=== PATIENT | female | born 1980 | race Caucasian/White ===

== ENCOUNTER → 2016-09-12 | Outpatient (CLI) | payer BC ==
--- NOTE | 2016-09-12 08:14 | US ---
EXAMINATION TYPE: US pelvic complete DATE OF EXAM: 09/12/2016 7:42 AM COMPARISON: No previous CLINICAL HISTORY: R10.9 Abdominal pain,. RUQ and back tenderness, nausea, diarrhea, 1, para 1 , hx of TECHNIQUE: Transabdominal (TA) Date of LMP: 09/02/2016 EXAM MEASUREMENTS: Uterus: 7.9 x 3.5 x 4.2 cm Endometrial Stripe: 0.4 cm Right Ovary: 2.7 x 2.7 x 1.5 cm Left Ovary: 2.7 x 2.5 x 1.6 cm TECHNOLOGIST IMPRESSION: 1. Uterus: Anteverted 2. Endometrium: wnl for patient's menstrual cycle 3. Right Ovary: 0.8cm small cystic area 4. Left Ovary: 0.8cm small cystic area 5. Bilateral Adnexa: wnl 6. Posterior cul-de-sac: free fluid seen IMPRESSION: NORMAL PELVIC ULTRASOUND.
--- NOTE | 2016-09-12 08:21 | US ---
EXAMINATION TYPE: US abdomen complete DATE OF EXAM: 09/12/2016 8:02 AM COMPARISON: No previous CLINICAL HISTORY: R10.9 Abdominal pain,. RUQ and back tenderness, nausea, diarrhea EXAM MEASUREMENTS: Liver Length: 15.0 cm Gallbladder Wall: 0.2 cm CBD: 0.2 cm Spleen: 11.0 cm Right Kidney: 9.6 x 3.9 x 5.2 cm Left Kidney: 10.5 x 6.2 x 4.4 cm TECHNOLOGIST IMPRESSION: Pancreas: wnl Liver: wnl Gallbladder: wnl Evidence for sonographic Vuong's sign: yes CBD: wnl Spleen: visualized portions wnl, limited by rib shadowing Right Kidney: wnl Left Kidney: visualized portions wnl, limited by rib shadowing Upper IVC: wnl Abd Aorta: wnl IMPRESSION: 1. Unremarkable abdomen ultrasound
== END | disposition home or self-care (01) ==
LOC: RADUSWWP 07:27
PROVIDERS: ATTEND Family Medicine
DX: R10.9 Unspecified abdominal pain (principal)
CPT/HCPCS: 76700; 76856

== ENCOUNTER → 2016-09-24 | Outpatient (CLI) | payer BC ==
--- NOTE | 2016-09-24 19:11 | NM ---
EXAMINATION TYPE: NM hepatobiliary w EF DATE OF EXAM: 09/24/2016 5:25 PM COMPARISON: NONE HISTORY: TECHNIQUE: After the intravenous administration of 5.3 mCi Tc 99m Mebrofenin hepatobiliary scintigrap hy is performed. Immediate images post injection. FINDINGS: There is satisfactory initial accumulation of tracer by the liver. The gallbladder is visualized wit hin 5 minutes. The small bowel activity is noted within 22 minutes. At one hour 8 ounces of oral en sure plus is given to mimic CCK and gallbladder ejection fraction is calculated at 86 %, in the mariza l range. Therefore there is no scintigraphic evidence of cystic or common bile duct obstruction to s uggest acute cholecystitis or gallbladder dyskinesia. IMPRESSION: Normal hepatobiliary scan. No evidence of a focal liver defect. No sign of cystic duct or common bile duct obstruction. Normal gallbladder ejection fraction.
== END | disposition home or self-care (01) ==
LOC: RADNMMAIN 14:49
PROVIDERS: ATTEND Family Medicine
DX: R10.9 Unspecified abdominal pain (principal)
CPT/HCPCS: 78226; A9537

== ENCOUNTER 2018-01-13 09:50 | Inpatient (IN) | payer BC ==
[2018-01-09 13:51] VITALS: BMI 30.9
[2018-01-13] MEDS ORDERED: LACTATED RINGERS 1,000 ML IV ONE (10:03)
[2018-01-13] MEDS ORDERED: CITRIC ACID-SODIUM CITRATE 15 ML CUP PO ONE (10:03)
[2018-01-13] MEDS ORDERED: ceFAZolin IN SWFI 2 GM/20 ML SYRINGE IVP ONE (10:28)
[2018-01-13 11:01] LABS: Basophils % (A) 0 %; Eosinophils # (A) 0.1 k/uL (0-0.7); Eosinophils % (A) 1 %; HCT 37.3 % (34.0-46.0); Lymphocytes # (A) 0.9 k/uL (1.0-4.8); Lymphocytes % (A) 12 %; MCHC 34.7 g/dL (31.0-37.0); MCV 86.5 fL (80.0-100.0); Mean Platelet Volume 9.2; Monocytes # (A) 0.4 k/uL (0-1.0); Monocytes % (A) 6 %; Neutrophils # (A) 6.3 k/uL (1.3-7.7); Neutrophils % (A) 80 %; Platelet Count 132 k/uL (150-450); RBC 4.31 m/uL (3.80-5.40); RDW 13.3 % (11.5-15.5); WBC 7.9 k/uL (3.8-10.6)
[2018-01-13] MEDS ORDERED: LACTATED RINGERS 1,000 ML BAG IV ONE (11:10)
[2018-01-13] MEDS ORDERED: NALBUPHINE 10 MG/ML VIAL (10ML MDV) ONE (11:10)
[2018-01-13] MEDS ORDERED: OXYTOCIN 10 UNIT/ML 1 ML VIAL ONE (11:10)
[2018-01-13] MEDS ORDERED: ePHEDrine 50 MG/ML 1 ML AMP ONE (11:10)
[2018-01-13] MEDS ORDERED: MORPHINE SULFATE (PF) 0.3 MG/0.3 ML SYR ONE (11:10)
[2018-01-13] MEDS ORDERED: ONDANSETRON 4 MG/2 ML VIAL ONE (11:10)
[2018-01-13] MEDS ORDERED: KETOROLAC 30 MG/ML 1 ML VIAL ONE (11:10)
[2018-01-13] MEDS ORDERED: ZOLPIDEM 5 MG TAB PO PRN (12:15)
[2018-01-13] MEDS ORDERED: diphenhydrAMINE 50 MG CAP PO PRN (12:15)
[2018-01-13] MEDS ORDERED: NALOXONE 0.4 MG/ML 1 ML VIAL IV PRN ×2 (12:15→20:59)
[2018-01-13] MEDS ORDERED: HYDROcodone/APAP 5-325MG 1 EACH TAB PO PRN (12:15)
[2018-01-13] MEDS ORDERED: diphenhydrAMINE 50 MG/ML 1 ML VIAL IVP PRN ×3 (12:15→20:59)
[2018-01-13] MEDS ORDERED: diphenhydrAMINE 25 MG CAP PO PRN (12:15)
[2018-01-13] MEDS ORDERED: ONDANSETRON 4 MG/2 ML VIAL IVP PRN (12:15)
[2018-01-13] MEDS ORDERED: ACETAMINOPHEN TAB 325 MG TAB PO PRN (12:15)
[2018-01-13] MEDS ORDERED: SIMETHICONE 80 MG CHEWABLE PO PRN (12:15)
[2018-01-13] MEDS ORDERED: OXYTOCIN 20 UNITS/1000 ML NS 1,000 ML IV SCH (12:15)
[2018-01-13] MEDS ORDERED: METOCLOPRAMIDE 5 MG/ML 2 ML VIAL IVP PRN (12:15)
--- NOTE | 2018-01-13 12:23 | P.HPOB ---
History of Present Illness H&P Date: 01/13/18 Chief Complaint: 39-3/7 weeks, previous section requesting repeat, undesired fertil The patient is a 37-year-old 2 para 1001 admitted at 39-3/7 weeks as established by last menstrual period and confirmed by 19 week ultrasound. She is admitted for repeat low transverse section having previously undergone section. She also has requested intraoperative bilateral tubal occlusion. Her has been uncomplicated though her first did have some complications the with significant wound infection following her section. As result, she has requested that her scar be revised as well. She does fall into the category of advanced maternal age and had negative trisomy screening at the onset of . On labor and delivery , all maternal and signs are reassuring. Group B strep is positive the from a positive urine culture. Obstetrical history: 2 para 1001 with 1 term section for arrest of dilation and descent which was also complicated by a postoperative wound infection. Current statistics are listed in history of present illness. EDC of 01/17/2018 was established by last menstrual period and confirmed by 19 week ultrasound. Laboratory workup demonstrates a blood type of O+ with a negative antibody screen. Rubella status is immune. All other laboratory workup was within normal limits aside from her urine culture growing group B streptococcus. This was treated and cured. Trisomy testing early in the was negative. One hour Glucola was negative and group B strep status is positive as noted above. Gynecologic history: Unremarkable with no history of any infections to include STDs. Review of Systems Review of systems is confined to history of present illness. Past Medical History Past Medical History: No Reported History History of Any Multi-Drug Resistant Organisms: None Reported Past Surgical History: Section Past Anesthesia/Blood Transfusion Reactions: No Reported Reaction Past Psychological History: No Psychological Hx Reported Smoking Status: Never smoker Past Alcohol Use History: None Reported Past Drug Use History: None Reported - Past Family History Mother Family Medical History: No Reported History Medications and Allergies Home Medications Medication Instructions Recorded Confirmed Type Pnv No.95/Ferrous Fum/Folic AC 1 each PO DAILY 01/09/18 01/13/18 History [ Multivitamin Tablet] Allergies Allergy/AdvReac Type Severity Reaction Status Date / Time clindamycin Allergy Severe muscles Verified 01/13/18 10:07 seized up methylprednisolone Allergy Severe Rash/Hives Verified 01/13/18 10:07 [From Medrol] Penicillins Allergy Severe Rash/Hives Verified 01/13/18 10:07 Quinolones Allergy Severe Rash/Hives Verified 01/13/18 10:07 Sulfa (Sulfonamide Allergy Severe Rash/Hives Verified 01/13/18 10:07 Antibiotics) betalactams Allergy Severe Rash/Hives Uncoded 01/13/18 10:07 Exam - Vital Signs Vital signs: Vital Signs Temp Pulse Resp BP 01/13/18 09:57 98.3 F 130 H 18 121/74 Intake and Output 01/12/18 01/13/18 01/13/18 22:59 06:59 14:59 Other: Weight 69.4 kg In general, this is a well-developed, well-nourished white female in no acute distress though she is quite nervous. Her heart has a regular rhythm and rate those occasionally tachycardic secondary to her anxiety. Her lungs are clear to auscultation bilaterally in all schaefer. Her abdomen is gravid, nondistended , has normal active bowel sounds, is soft, nontender, and without any palpable masses aside from uterine fundus. Her extremities are without any cyanosis, clubbing, or edema and are nontender to palpation bilaterally. Digital cervical examination is deferred. Results Result Diagrams: 01/13/18 10:35 Abnormal Lab Results - Last 24 Hours (Table) 01/13/18 Range/Units 10:35 Plt Count 132 L (150-450) k/uL Lymphocytes # 0.9 L (1.0-4.8) k/uL Assessment and Plan (1) Family planning Current Visit: Yes Status: Acute Code(s): Z30.09 - ENCOUNTER FOR OTH GENERAL CNSL AND ADVICE ON CONTRACEPTION SNOMED Code(s): 093800399 (2) Term Current Visit: Yes Status: Acute Code(s): Z34.80 - ENCOUNTER FOR SUPRVSN OF NORMAL , UNSP TRIMESTER SNOMED Code(s): 79864724 (3) Previous section Current Visit: Yes Status: Acute Code(s): Z98.891 - HISTORY OF UTERINE SCAR FROM PREVIOUS SURGERY SNOMED Code(s): 054836526 Plan: The patient is admitted for repeat low transverse section with intraoperative bilateral tubal occlusion using Filshie clips. We additionally have discussed excision and revision of the pre-existing scar. The risks and complications of the procedures have been thoroughly discussed and she has understood and agreed to proceed.
--- NOTE | 2018-01-13 12:31 | P.OP ---
Date of Procedure: 01/13/18 Preoperative Diagnosis: #1. 39-3/7 weeks, previous section #2. Undesired fertility Postoperative Diagnosis: Same Procedure(s) Performed: #1. Repeat low transverse section #2. Intraoperative bilateral tubal occlusion with Filshie clips #3. Excision and revision of scar Anesthesia: spinal Surgeon: Girma Em Electric Wheelchair Repairer #1: Kaleigh Jacome Estimated Blood Loss (ml): 500 IV fluids (ml): 1,000 Urine output (ml): 150 Pathology: none sent Condition: stable Disposition: floor Operative Findings: The patient was taken the operating room where she was delivered of a viable 7 lbs. 5 oz. baby boy with Apgars of 9 at 1 minute and 9 at 5 minutes. The uterus , tubes, and ovaries were entirely normal to inspection. The layer uterine segment was very thin. There was a moderate amount of scarring at the level of the fascia but minimal scarring within the abdomen. The entire pre-existing Pfannenstiel scar was completely excised at the onset of the procedure and discarded. The placenta was delivered manually, intact, and grossly normal although it did appear to have a possible accessory lobe. There was otherwise a normal three-vessel cord. Description of Procedure: The patient was prepped and draped in usual fashion after spinal anesthesia was administered by the anesthesiologist. The Pfannenstiel incision was ellipsed and excised to the level of the fascia as the patient has very very little subcutaneous tissue. The abdomen was then entered without significant further difficulty. The bladder peritoneum was noted to be scarred somewhat superiorly and was therefore elevated, incised and reflected distally. A 2 cm incision was made in the transverse plane of the lower uterine segment to enter the uterus at which time clear fluid was noted. The incision was extended both with bandage scissors and bluntly. The head was then delivered through the incision with some difficulty secondary to previous scarring. As result, the uterine incision was opened vertically in the central approximate 1 cm vertically. This allowed room for the infant's head the past. The nose and mouth were thoroughly suctioned on the abdomen. The remainder of the infant was delivered onto the field where the cord was doubly clamped, cut, and the infant passed resuscitative measures with weight and Apgars as noted above. A segment of cord was doubly clamped, cut, and set aside should cord gases become necessary. The placenta was delivered manually, intact, and grossly normal as noted above though there was a possible small succenturiate lobe. The uterus was exteriorized and the interior cavity of the uterus swept of any remaining blood, fluid, or clot. The margins of the incision were grasped with Roque clamps and the incision was closed in a single running locking stitch of 0 chromic catgut from margin to margin incorporating the small T- shaped portion in the closure. Hemostasis appeared to be excellent. The posterior cul-de-sac was then suctioned using a guard. Attention was turned to the right fallopian tube where a Filshie clip was placed across the entire thickness of the fallopian tube and firmly closed over it. A similar operation was carried out on the opposite side without difficulty. Each clip was placed approximately 2-3 cm from the cornu of the uterus bilaterally. The uterus was replaced within the abdominal cavity and the gutters were swept of any remaining blood, fluid, or clot. The incision was reexamined and any small points of bleeding made hemostatic with the Bovie. The parietal peritoneum was loosely reapproximated in the layer of muscles examined and made hemostatic with the Bovie. The fascia was closed with a single running stitch of 0 Vicryl proceeding from margin to margin. The subcutaneous tissues were irrigated, made hemostatic with the Bovie, and reapproximated with a stitch of 30 plain catgut. The skin was reapproximated with a running subcuticular stitch of 4-0 Vicryl followed by half-inch Steri-Strips placed with Mastisol. Estimated blood loss for the entire case was approximately 500 mL. There were no complications. All sponge, instrument, and needle counts were correct. The patient tolerated the procedure well and proceeded to the recovery room in stable condition. Both mother and are resting comfortably in recovery.
[2018-01-13] MEDS: KETOROLAC 30 MG/ML 1 ML VIAL IVP PRN (17:57)
[2018-01-13] MEDS: SENNOSIDES-DOCUSATE SODIUM 1 EACH TAB PO SCH (20:11)
[2018-01-13] MEDS ORDERED: PROMETHAZINE INJ 6.25 MG in SODIUM CHLORIDE 0.9% 50 ML IVPB PRN (20:59)
[2018-01-13] MEDS ORDERED: MORPHINE SULFATE 2 MG/ML SYRINGE IVP PRN (20:59)
[2018-01-13] MEDS ORDERED: NALBUPHINE 10 MG/ML VIAL (10ML MDV) IV PRN (20:59)
[2018-01-13] MEDS: LACTATED RINGERS 1,000 ML IV SCH ×4 (22:26→23:19)
[2018-01-14] MEDS: KETOROLAC 30 MG/ML 1 ML VIAL IVP PRN ×2 (02:41→09:14)
[2018-01-14] MEDS: LACTATED RINGERS 1,000 ML IV SCH (05:25)
[2018-01-14 06:57] LABS: Basophils % (A) 0 %; Eosinophils # (A) 0.1 k/uL (0-0.7); Eosinophils % (A) 1 %; HCT 32.8 % (34.0-46.0); HGB 11.2 gm/dL (11.4-16.0); Lymphocytes # (A) 0.6 k/uL (1.0-4.8); Lymphocytes % (A) 6 %; MCH 30.3 pg (25.0-35.0); MCHC 34.2 g/dL (31.0-37.0); MCV 88.6 fL (80.0-100.0); Monocytes # (A) 0.5 k/uL (0-1.0); Monocytes % (A) 6 %; Neutrophils % (A) 86 %; Platelet Count 107 k/uL (150-450); RDW 13.8 % (11.5-15.5); WBC 9.3 k/uL (3.8-10.6)
--- NOTE | 2018-01-14 08:45 | P.PNOBGPC ---
Subjective - Subjective Patient reports: Reports appetite normal, Reports voiding normally, Reports pain well controlled, Reports ambulating normally : doing well Objective - Vital Signs Latest vital signs: Vital Signs Temp Pulse Resp BP Pulse Ox 01/14/18 06:00 16 01/14/18 04:00 98.8 F 102 H 16 100/60 98 01/14/18 02:00 16 01/13/18 23:50 98.8 F 106 H 16 123/74 98 01/13/18 22:00 16 01/13/18 20:30 98.2 F 104 H 16 118/70 98 01/13/18 15:45 98.2 F 103 H 16 124/74 97 01/13/18 14:13 97.5 F L 105 H 18 127/63 01/13/18 13:43 97.5 F L 103 H 16 126/65 99 01/13/18 13:13 114 H 18 129/59 99 01/13/18 12:58 110 H 18 127/61 99 01/13/18 12:43 111 H 18 125/65 99 01/13/18 12:28 107 H 16 118/60 100 01/13/18 12:13 97.0 F L 126 H 16 113/61 100 01/13/18 09:57 98.3 F 130 H 18 121/74 Intake and Output 01/13/18 01/14/18 01/14/18 22:59 06:59 14:59 Intake Total 600 Output Total 525 1000 150 Balance -525 -400 -150 Intake: Other 600 Output: Urine 525 1000 150 Straight 1000 Uretheral (Khan) 450 Other: Voiding Method Indwelling Catheter - Exam Extremities: Present: normal Abdomen: Present: normal appearance, soft. Absent: distention, tenderness Incision: Present: normal, dry, intact Uterus: Present: normal, firm (The uterine fundus as tonic and appropriately tender at the umbilicus) - Labs Labs: Abnormal Lab Results - Last 24 Hours (Table) 01/13/18 01/14/18 Range/Units 10:35 06:44 RBC 3.70 L (3.80-5.40) m/uL Hgb 11.2 L (11.4-16.0) gm/dL Hct 32.8 L (34.0-46.0) % Plt Count 132 L 107 L (150-450) k/uL Neutrophils # 8.0 H (1.3-7.7) k/uL Lymphocytes # 0.9 L 0.6 L (1.0-4.8) k/uL Assessment and Plan (1) Family planning Current Visit: Yes Status: Acute Code(s): Z30.09 - ENCOUNTER FOR OTH GENERAL CNSL AND ADVICE ON CONTRACEPTION SNOMED Code(s): 394477165 (2) Term Current Visit: Yes Status: Acute Code(s): Z34.80 - ENCOUNTER FOR SUPRVSN OF NORMAL , UNSP TRIMESTER SNOMED Code(s): 83714432 (3) Previous section Current Visit: Yes Status: Acute Code(s): Z98.891 - HISTORY OF UTERINE SCAR FROM PREVIOUS SURGERY SNOMED Code(s): 058927331 (4) S/P section Current Visit: Yes Status: Acute Code(s): Z98.891 - HISTORY OF UTERINE SCAR FROM PREVIOUS SURGERY SNOMED Code(s): 174242736 Plan: Continue routine postoperative care. I have strongly encouraged the patient amulet in the hallways at least 4 times daily. I would anticipate discharge home tomorrow pending no complications.
[2018-01-14] MEDS: SENNOSIDES-DOCUSATE SODIUM 1 EACH TAB PO SCH ×2 (09:14→22:04)
--- NOTE | 2018-01-14 10:10 | P.PN ---
Progress Note - Text Anesthesia POD 1. Patient is status post section under spinal anesthesia with intra-thecal preservative free morphine and 100 g. Mild pruritus, reasonable post-op analgesia but requiring morphine and Toradol supplementation, and no headache or other complication.
[2018-01-14] MEDS: IBUPROFEN 600 MG TAB PO PRN ×2 (16:09→22:11)
[2018-01-14] MEDS: HYDROcodone/APAP 7.5-325MG 1 EACH TAB PO PRN (19:40)
[2018-01-15] MEDS: HYDROcodone/APAP 7.5-325MG 1 EACH TAB PO PRN ×2 (01:32→08:10)
[2018-01-15] MEDS: IBUPROFEN 600 MG TAB PO PRN ×2 (05:19→11:24)
[2018-01-15] MEDS: SENNOSIDES-DOCUSATE SODIUM 1 EACH TAB PO SCH (08:10)
--- NOTE | 2018-01-15 08:50 | P.DS ---
Providers Date of admission: 01/13/18 09:50 Expected date of discharge: 01/15/18 Attending physician: Girma Em Primary care physician: Troy Alvarado - Discharge Diagnosis(es) (1) Family planning Current Visit: Yes Status: Acute (2) Term Current Visit: Yes Status: Acute (3) Previous section Current Visit: Yes Status: Acute (4) S/P section Current Visit: Yes Status: Acute Hospital Course: The patient is a 37-year-old 2 para 1001 admitted at 39-3/7 weeks by good dating parameters. She is admitted for repeat low transverse section with tubal ligation intraoperatively. Her was uncomplicated though she falls into the category of advanced maternal age. She did have trisomy testing done at the beginning of the which was negative. She was taken to the operating room where she underwent repeat low transverse section with intraoperative bilateral tubal occlusion using Filshie clips without complication. I also performed excision of the scar and revision of the wound from previous complications. Her postoperative course was unremarkable with vital signs remaining stable and her temperature was afebrile throughout. She was deemed stable for discharge by postoperative day #2 was discharged home to follow-up in the office in 2 weeks for an incision check and 6 weeks routinely. Discharge instructions included calling for any significantly increased bleeding or foul-smelling lochia, significantly increased fever abdominal pain, perineal complaints, breast complaints, incisional complaints, or anything else that concerned her. She was additionally instructed to have nothing in the vagina for at least 6 weeks time to include intercourse and to avoid any heavy lifting over the same period of time. She was lastly instructed to do no driving until off of all pain medications or 2 weeks' time, whichever came first. She understood all of her instructions and agrees to follow up as noted above. Discharge medications included [id number] analgesic pain medications as well as a prescription for [place] 5/325 mg, 1-2 by mouth every 6 hours when necessary pain, #20 dispensed with no refills. Maternal blood type is O+ and rubella status is immune. Discharge hemoglobin and hematocrit were 11.2 and 32.8 respectively. Procedures: #1. Repeat low transverse section #2. Intraoperative bilateral tubal occlusion with Filshie clips #3. Scar excision and revision Patient Condition at Discharge: Good Plan - Discharge Summary Discharge Rx Participant: Yes New Discharge Prescriptions: No Action Pnv No.95/Ferrous Fum/Folic AC [ Multivitamin Tablet] 1 each PO DAILY Discharge Medication List Pnv No.95/Ferrous Fum/Folic AC [ Multivitamin Tablet] 1 each PO DAILY [History] Follow up Appointment(s)/Referral(s): Girma Em MD [STAFF PHYSICIAN] - 2 Weeks Discharge Disposition: HOME SELF-CARE
[2018-01-15 09:19] VITALS: BP 120/74; PULSE 107; RESP 16; TEMP 97.9
== END 2018-01-15 12:14 | disposition home or self-care (01) | DRG 766 ==
LOC: 4FBP 09:50
PROVIDERS: ADMIT Obstetrics & Gynecology; ATTEND Obstetrics & Gynecology
PROC: 0UL70CZ Occlusion of Bilateral Fallopian Tubes with Extraluminal Device, Open Approach (ICD-10-PCS; 2018-01-13)
PROC: 10D00Z1 Extraction of Products of Conception, Low, Open Approach (ICD-10-PCS; principal; 2018-01-13 12:00)
DX: O34.211 Maternal care for low transverse scar from previous cesarean delivery (principal); Z37.0 Single live birth; O99.824 Streptococcus B carrier state complicating childbirth; Z30.2 Encounter for sterilization; O99.72 Diseases of the skin and subcutaneous tissue complicating childbirth; L29.9 Pruritus, unspecified; Z3A.39 39 weeks gestation of pregnancy
CPT/HCPCS: 85025; 86850; 86900; 86901

== ENCOUNTER → 2018-04-30 | Outpatient (CLI) | payer BC ==
[2018-04-30 16:24] LABS: Basophils % (A) 1 %; Eosinophils # (A) 0.2 k/uL (0-0.7); Eosinophils % (A) 4 %; HCT 41.2 % (34.0-46.0); HGB 13.3 gm/dL (11.4-16.0); Lymphocytes # (A) 1.1 k/uL (1.0-4.8); Lymphocytes % (A) 26 %; MCH 28.8 pg (25.0-35.0); MCHC 32.3 g/dL (31.0-37.0); MCV 89.1 fL (80.0-100.0); Mean Platelet Volume 8.1; Monocytes # (A) 0.2 k/uL (0-1.0); Monocytes % (A) 5 %; Neutrophils # (A) 2.5 k/uL (1.3-7.7); Neutrophils % (A) 61 %; Platelet Count 196 k/uL (150-450); RBC 4.63 m/uL (3.80-5.40); RDW 13.1 % (11.5-15.5)
== END | disposition home or self-care (01) ==
LOC: LABPAT 15:22
PROVIDERS: ATTEND Obstetrics & Gynecology
DX: Z01.812 Encounter for preprocedural laboratory examination (principal); N92.1 Excessive and frequent menstruation with irregular cycle
CPT/HCPCS: 85025

== ENCOUNTER 2018-05-12 06:55 | Day surgery (SDC) | payer BC ==
[2018-05-05 15:38] VITALS: BMI 24.2
[~2018-05-12 06:55] MED LIST: LACTATED RINGERS 1,000 ML IV SCH; ONDANSETRON 4 MG/2 ML VIAL IVP ONE; fentaNYL (PF) 50 MCG/ML 2 ML AMP IV PRN
[2018-05-12] MEDS ORDERED: LIDOCAINE 1% 20 ML VIAL (10MG/ML) FOR IV START INTRADERMA ONE (07:52)
[2018-05-12] MEDS ORDERED: DEXAMETHASONE SOD PHOS (MDV) 100 MG/10 ML VIAL IV ONE (07:53)
[2018-05-12] MEDS ORDERED: diphenhydrAMINE 50 MG/ML 1 ML VIAL ONE (08:38)
[2018-05-12] MEDS ORDERED: fentaNYL (PF) 50 MCG/ML 2 ML AMP ONE (08:38)
[2018-05-12] MEDS ORDERED: PROPOFOL 10 MG/ML 20 ML VIAL IV ONE (08:38)
[2018-05-12] MEDS ORDERED: MIDAZOLAM 2 MG/2 ML VIAL ONE (08:38)
[2018-05-12] MEDS ORDERED: LIDOCAINE 1% INJ 10MG/ML (20 ML MDV) ONE (08:38)
[2018-05-12] MEDS ORDERED: KETOROLAC 30 MG/ML 1 ML VIAL ONE (08:38)
[2018-05-12] MEDS ORDERED: diphenhydrAMINE 50 MG/ML 1 ML VIAL IVP PRN (08:41)
[2018-05-12] MEDS ORDERED: IBUPROFEN 600 MG TAB PO PRN (08:41)
[2018-05-12] MEDS ORDERED: ONDANSETRON 4 MG/2 ML VIAL IVP PRN (08:41)
[2018-05-12] MEDS ORDERED: SIMETHICONE 80 MG CHEWABLE PO PRN (08:41)
[2018-05-12] MEDS ORDERED: KETOROLAC 30 MG/ML 1 ML VIAL IVP PRN (08:41)
[2018-05-12] MEDS ORDERED: METOCLOPRAMIDE 5 MG/ML 2 ML VIAL IVP PRN (08:41)
[2018-05-12] MEDS ORDERED: LACTATED RINGERS 1,000 ML IV SCH (08:45)
--- NOTE | 2018-05-12 09:14 | P.OP ---
Date of Procedure: 05/12/18 Preoperative Diagnosis: #1. Menometrorrhagia Postoperative Diagnosis: Same Procedure(s) Performed: #1. Diagnostic hysteroscopy #2. NovaSure endometrial ablation Anesthesia: ROSE Surgeon: Girma Em Estimated Blood Loss (ml): 5 IV fluids (ml): 300 Urine output (ml): 275 Pathology: none sent Condition: stable Disposition: PACU Operative Findings: Preoperative pelvic examination demonstrated a 5-6 week midplane mobile normal shaped uterus with normal adnexa bilaterally. Intraoperatively, the uterus sounded to 9.5 cm while the cervix was approximately 4 cm. Using the hysteroscope, the bilateral tubal ostia were seen. There is no apparent pathology within the endometrial cavity. The settings for the NovaSure tool where a length of 5.5 cm, a width of 4.8 cm, for a total power of 145 W. The cavity check was passed without difficulty. After run time of 95 seconds, the base unit read "procedure complete." The postprocedural result appeared to be excellent. The patient is a candidate for da Maria Ines approach should hysterectomy become necessary given her 2 previous sections and only average descensus. Description of Procedure: The patient was prepped and draped in usual fashion after general endotracheal anesthesia was administered by the anesthesiologist. A weighted speculum was placed and the bladder drained of approximately 275 mL of clear kailash urine. The anterior lip of the cervix was grasped with single-tooth tenaculum and the uterus was sounded to 9.5 cm with a cervical length of 4.0 cm as noted above. Serial dilation was carried out to admit the diagnostic hysteroscope which was placed to the fundus and diagnostic hysteroscopy carried out using saline as a distention media. The bilateral tubal ostia were seen and there was no apparent pathology throughout the cavity. The scope was then set aside and the NovaSure tool placed to the fundus and opened and seated properly. The settings for the tool were as noted above, a length of 5.5 cm, a width of 4.8 cm , a total power 145 W. The cavity check was attempted and passed without difficulty. The tool was enabled and the run was started. After a run time of 95 seconds, the tool disengaged and the base unit read "procedure complete." The 2 was closed removed and discarded and the diagnostic scope placed within the endometrial cavity. The result appeared to be excellent. All instrumentation was then removed. There was bleeding from both sites of the tenaculum which was made hemostatic using pressure. Estimated blood loss for the entire case was less than 5 mL. There are no complications. All sponge, instrument, and needle counts were correct. The patient tolerated the procedure well and proceeded to the recovery room in stable condition.
[2018-05-12 09:34] VITALS: TEMP 98.7
[2018-05-12 09:36] VITALS: RESP 16
[2018-05-12] MEDS: HYDROmorphone 1 MG/ML 1 ML SYRINGE IVP PRN ×2 (09:40→09:48)
[2018-05-12 10:55] VITALS: BP 119/74; PULSE 89
[2018-05-13] MEDS ORDERED: ACETAMINOPHEN TAB 325 MG TAB PO PRN (08:43)
== END 2018-05-12 11:02 | disposition home or self-care (01) ==
LOC: OR 06:55
PROVIDERS: ATTEND Obstetrics & Gynecology
DX: N92.1 Excessive and frequent menstruation with irregular cycle (principal); M41.9 Scoliosis, unspecified; Z88.1 Allergy status to other antibiotic agents; Z88.0 Allergy status to penicillin; Z88.2 Allergy status to sulfonamides; Z88.8 Allergy status to other drugs, medicaments and biological substances
CPT/HCPCS: 81025; 58563; J2250; J1200; J2405; J2001; J3010; J1885; J1170; J1100; J2704

== ENCOUNTER → 2019-07-06 | Outpatient (CLI) | payer BC ==
[2019-07-06 17:45] LABS: African American GFR (CKD) >90 (>60 ml/min/1.73 sqM); Anion Gap 7 mmol/L; Blood Urea Nitrogen 11 mg/dL (7-17); Carbon Dioxide 28 mmol/L (22-30); Chloride 103 mmol/L (98-107); Glucose 122 mg/dL (74-99); Non-African American GFR(CKD) >90 (>60 ml/min/1.73 sqM); Potassium 3.7 mmol/L (3.5-5.1); Sodium 138 mmol/L (137-145)
[2019-07-06 17:47] LABS: Basophils % (A) 1 %; Eosinophils # (A) 0.1 k/uL (0-0.7); Eosinophils % (A) 3 %; HGB 13.4 gm/dL (11.4-16.0); Lymphocytes # (A) 1.3 k/uL (1.0-4.8); Lymphocytes % (A) 32 %; MCH 30.3 pg (25.0-35.0); MCHC 34.4 g/dL (31.0-37.0); Mean Platelet Volume 8.5; Monocytes # (A) 0.2 k/uL (0-1.0); Monocytes % (A) 6 %; Neutrophils # (A) 2.4 k/uL (1.3-7.7); Neutrophils % (A) 57 %; Platelet Count 218 k/uL (150-450); RBC 4.43 m/uL (3.80-5.40); WBC 4.2 k/uL (3.8-10.6)
== END | disposition home or self-care (01) ==
LOC: LABPAT 16:47
PROVIDERS: ATTEND Obstetrics & Gynecology
DX: N92.1 Excessive and frequent menstruation with irregular cycle (principal)
CPT/HCPCS: 36415; 80051; 82565; 82947; 84520; 85025; 87086

== ENCOUNTER 2019-07-13 05:48 | Observation (INO) | payer BC ==
[2019-07-09 10:31] VITALS: BMI 22.2
--- NOTE | 2019-07-12 18:41 | HP ---
HISTORY AND PHYSICAL REASON FOR ADMISSION: Surgery scheduled on July 13, 2019. HISTORY OF PRESENT ILLNESS: The patient is a 38-year-old 2, para 2002, who initially presented to the office with a long-standing history of heavy and irregular bleeding. She has undergone tubal ligation with her last section, of which she has had 2. For that, bleeding, she then underwent NovaSure endometrial ablation approximately a year ago, but continues to have irregular and occasionally very heavy bleeding, which is interruptive of her lifestyle. She has not tolerated hormonal interventions in the past and is requesting definitive treatment with hysterectomy. Given her history of sections as well as lack of descensus, she is only a candidate for either open or Da Maria Ines procedure and we will proceed with a Da Maria Ines hysterectomy. PAST MEDICAL HISTORY: Significant for dysmenorrhea, menorrhagia, scoliosis, and occasional anemia. SURGICAL HISTORY: She has had sections on 2 different occasions in 2015 and in 2018. She then had a diagnostic hysteroscopy with NovaSure endometrial ablation in 2018. Prior to that, she had an exploratory laparoscopy in 2011. Tubal ligation was performed during her 2nd section. There were no anesthetic concerns. GYNECOLOGIC HISTORY: Is unremarkable with no history of any infections to include STDs. OBSTETRICAL HISTORY: 2, para 2-0-0-2 with 2 term sections. The 2nd section included tubal ligation, which is her method of contraception. SOCIAL HISTORY: The patient is and does work outside the home. She is a nonsmoker and denies any significant alcohol or any other social concerns. CURRENT MEDICATIONS: None. ALLERGIES: SHE REPORTS AN ALLERGY TO BETA LACTAMS WELL CLINDAMYCIN AND APPARENTLY DEVELOPED A RASH FROM THE BETA LACTAMS OR PENICILLINS. ADDITIONALLY, SHE HAS HAD SOME ISSUES WITH QUINOLONES IN THE PAST LEADING TO HIVES WELL SULFA DRUGS CAUSING HIVES. PHYSICAL EXAMINATION: Vital signs are stable. The patient is afebrile. In general, this is a well- developed, well-nourished white female in no acute distress. Her heart has regular rhythm and rate without murmur. Her lungs are clear to auscultation bilaterally in all schaefer. Her abdomen is nondistended, has normoactive bowel sounds, soft, nontender, and without any palpable masses, hepatosplenomegaly, or hernias. Her extremities are without any cyanosis, clubbing, or edema and are nontender to palpation bilaterally. Pelvic examination demonstrates normal external genitalia and BUS with normal vaginal mucosa and cervix. There is no cervical motion tenderness. Uterus is 5 weeks in size, mid plane, mobile, nontender, normal in shape. The adnexa are normal and nontender without mass bilaterally. ASSESSMENT AND PLAN: Menometrorrhagia: We discussed options for treatment and the patient has chosen definitive therapy with Da Maria Ines hysterectomy with bilateral salpingectomy and diagnostic cystoscopy. The risks and complications of the procedure have been thoroughly discussed including the risks for bleeding, bleeding requiring transfusion, infection, and injury to local structures to specifically include the bowel, bladder, and ureters. Special attention was paid to issues with the bladder given her history of 2 previous sections. We also discussed the risk for injuries that are unique to Da Maria Ines surgery to include thermal injury as well as vaginal cuff dehiscence. She has understood all this and has agreed to proceed. We are scheduled for the procedures as outlined above on the morning of 07/13/2019. MMODL / IJN: [id number] /
[~2019-07-13 05:48] MED LIST changes: +DEXAMETHASONE SOD PHOSPHATE 10 MG/ML 1 ML VIAL IV ONE; -LACTATED RINGERS 1,000 ML IV SCH; +MIDAZOLAM 2 MG/2 ML VIAL IV PRN; +SCOPOLAMINE 1.5MG/72HR PATCH TRANSDERM ONE; -fentaNYL (PF) 50 MCG/ML 2 ML AMP IV PRN
[2019-07-13] MEDS: LIDOCAINE 1% 20 ML VIAL (10MG/ML) FOR IV START INTRADERMA PRN ×2 (06:30→06:33)
[2019-07-13] MEDS: LACTATED RINGERS 1,000 ML IV SCH ×4 (06:33→19:18)
[2019-07-13] MEDS ORDERED: fentaNYL (PF) 50 MCG/ML 2 ML AMP IV ONE (07:07)
[2019-07-13] MEDS ORDERED: DEXAMETHASONE SOD PHOSPHATE 4 MG/ML 1 ML VIAL ONE (07:29)
[2019-07-13] MEDS ORDERED: LIDOCAINE 1% INJ 10MG/ML (20 ML MDV) ONE (07:29)
[2019-07-13] MEDS ORDERED: KETOROLAC 30 MG/ML 1 ML VIAL ONE (07:29)
[2019-07-13] MEDS ORDERED: MIDAZOLAM 2 MG/2 ML VIAL ONE (07:29)
[2019-07-13] MEDS ORDERED: ROCURONIUM BROMIDE 10 MG/ML 10 ML VIAL IV ONE (07:29)
[2019-07-13] MEDS ORDERED: GLYCOPYRROLATE 0.2 MG/ML 2 ML VIAL ONE (07:29)
[2019-07-13] MEDS ORDERED: diphenhydrAMINE 50 MG/ML 1 ML VIAL ONE (07:29)
[2019-07-13] MEDS ORDERED: PROPOFOL 10 MG/ML 20 ML VIAL IV ONE (07:29)
[2019-07-13] MEDS ORDERED: NEOSTIGMINE 1 MG/ML 10 ML VIAL ONE (07:29)
[2019-07-13] MEDS ORDERED: fentaNYL (PF) 50 MCG/ML 2 ML AMP ONE (07:29)
[2019-07-13] MEDS ORDERED: ROPIVACAINE 5 MG/ML 30 ML VIAL ONE (07:29)
[2019-07-13] MEDS ORDERED: ZOLPIDEM 5 MG TAB PO PRN (07:46)
[2019-07-13] MEDS ORDERED: diphenhydrAMINE 50 MG/ML 1 ML VIAL IVP PRN (07:46)
[2019-07-13] MEDS ORDERED: KETOROLAC 30 MG/ML 1 ML VIAL IVP PRN ×2 (07:46→15:21)
[2019-07-13] MEDS ORDERED: METOCLOPRAMIDE 5 MG/ML 2 ML VIAL IVP PRN (07:46)
[2019-07-13] MEDS ORDERED: Acetaminophen-Codeine 300-30mg TAB PO PRN (07:46)
[2019-07-13] MEDS ORDERED: BUPIVACAINE (PF) 0.5% 30 ML VIAL SQ ONE ×2 (08:13→09:21)
--- NOTE | 2019-07-13 08:23 | P.ANPRN ---
Procedure Note - Anesthesia - Nerve Block Performed Bilateral Transversus Abdominis Single Time Out Performed: Yes Date of Procedure: 07/13/19 Procedure Start Time: : Procedure Stop Time: :12 Location of Patient: PreOp Indication: Acute Post-Operative Pain, Analgesia, Requested by Surgeon Sedation Type: Sedate with meaningful contact maintained Preparation: Sterile Prep Position: Supine Catheter: None Needle Types: Pajunk Needle Gauge: 21 Ultrasound used to visualize needle placement: Yes Ultrasound used to observe medication spread: Yes Injectate: 0.5% Ropivacaine (see comment for volume) (30cc total) Adjunct: Epinephrine (see comment for dilution ratio) Blood Aspirated: No Pain Paresthesia on Injection Noted: No Resistance on Injection: Normal Image Stored and Saved: Yes Events: Uneventful and Well Tolerated
[2019-07-13] MEDS ORDERED: LACTATED RINGERS 1,000 ML IV ONE (09:19)
--- NOTE | 2019-07-13 09:22 | P.OP ---
Date of Procedure: 07/13/19 Preoperative Diagnosis: #1. Menometrorrhagia #2. Failed endometrial ablation Postoperative Diagnosis: Same Procedure(s) Performed: #1. Da Maria Ines robotically assisted laparoscopic hysterectomy #2. Bilateral salpingectomy #3. Diagnostic cystoscopy Anesthesia: ROSE Surgeon: Girma Em Operations Associate #1: Jami Sal Estimated Blood Loss (ml): 100 IV fluids (ml): 1,400 Urine output (ml): 160 Pathology: other (Uterus and bilateral fallopian tubes) Condition: stable Disposition: PACU Operative Findings: pelvic examination demonstrated a 4-5 week midplane mobile normal shaped uterus and normal adnexa bilaterally. Intraoperatively, the the care uterine manipulator was noted to perforated the fundus of the uterus. The bilateral ovaries were normal and there was evidence bilaterally of tubal ligation with Filshie clips. The remainder the findings throughout the pelvis and abdomen were entirely normal. There was a moderate amount of scarring at the level of the bladder from previous sections diagnostic cystoscopy following the procedure demonstrated bilateral ureteral jets and both ureters were also seen peristalsing intraperitoneally. Description of Procedure: The patient was prepped and draped in usual fashion after general endotracheal anesthesia was administered by the anesthesiologist. A weighted speculum was placed in the anterior lip of the cervix was grasped with single-tooth tenaculum after a Khan catheter had been placed. The uterus was sounded to approximately 8-9 cm and followed with serial dilation to admit that he care uterine manipulator which was placed to approximately 9 cm and the balloon inflated. The cup was fitted properly and attention turned to the abdomen. A site was selected approximately 2 cm above the umbilicus in the midline where a 10 mm incision was made in the transverse plane along its 10 mm optical trocar under direct visualization without difficulty. A site was selected approximate 4-5 cm beneath an approximately 10-12 cm lateral in the left lower quadrant where an 8 mm incision made in the transverse plane allowing insertion of an 8 mm da Maria Ines port under direct visualization without difficulty. A mirroring incision was made in the right lower quadrant. The area between the optical trocar and the left lower quadrant trocar was bisected and a site selected approximate 4-5 cm above the optical trocar site where a 10 mm incision was made in the transverse plane allowing insertion of a 10 mm bilingual teacher assistant port without difficulty. The robot was docked to the patient and the left arm loaded with the [place] bipolar cautery forceps while the right arm was or loaded with a monopolar cautery scissors. I then removed myself to the console and began the procedure by dissecting the left fallopian tube from the underlying ovary through the round ligament and tubo-ovarian ligament using bipolar cautery followed by monopolar cutting with scissors. Once to the broad ligament, attention was turned to the right side where similar operation was carried out. The bladder peritoneum was then elevated and incised sharply with the monopolar cautery scissors allowing it to be reflected distally with the use of a Ray-James passed through the bilingual teacher assistant port. After the bladder had been adequately reflected, the uterine vasculature was cauterized bilaterally with the [place] I for cautery forceps allowing it to be cut sharply. The vaginal cuff was clearly visible and, after sealing the vagina, the vagina was entered sharply with the monopolar cautery scissors and the cup followed circumferentially around the uterus to free the uterus from its attachments. It was then removed into the vagina. The monopolar cautery scissors was replaced with a laparoscopic suturing device. A stitch of O Stratafix suture was passed and the abdomen and utilized to close the vaginal cuff from margin to margin in standard fashion without difficulty. Thorough irrigation was carried out and there was no ongoing bleeding from any of the areas of concern. Examination of the remainder the pelvis demonstrated no further pathology. I then returned myself to the patient at which time the Khan catheter was removed and the diagnostic cystoscope placed in the bladder. The bilateral ureters were seen peristalsing intra-abdominally and the ureteral jets were noted cystoscopically as well. All instrumentation was then removed and the robot undocked allowing removal of the trochars. The Khan catheter was replaced. The entire pneumoperitoneum was evacuated through the ports and the skin closed with interrupted subcuticular stitches of 4-0 Vicryl. The incisions were injected with a total of 8 mL of half percent Marcaine without epinephrine equally divided between the 4 port sites. Estimated blood loss for the case is approximately cc. There were no complications. All sponge, instrument, and needle counts were correct. The patient tolerated the procedure well and proceeded to the recovery room in stable condition.
[2019-07-13] MEDS: HYDROmorphone 0.5 MG/0.5 ML SYRINGE IVP PRN ×2 (09:54→10:14)
[2019-07-13] MEDS: ONDANSETRON 4 MG/2 ML VIAL IVP PRN ×2 (09:55→16:20)
[2019-07-13] MEDS: SIMETHICONE 80 MG CHEWABLE PO PRN (16:24)
[2019-07-13] MEDS: Acetaminophen-Codeine 300-30mg TAB PO PRN ×2 (17:40→23:29)
[2019-07-13] MEDS: IBUPROFEN 600 MG TAB PO PRN (21:56)
[2019-07-13] MEDS: SENNOSIDES-DOCUSATE SODIUM 1 EACH TAB PO SCH (23:27)
[2019-07-14] MEDS: SIMETHICONE 80 MG CHEWABLE PO PRN (05:05)
[2019-07-14] MEDS: IBUPROFEN 600 MG TAB PO PRN (05:05)
[2019-07-14 07:00] LABS: Basophils % (A) 0 %; Eosinophils % (A) 1 %; HGB 11.4 gm/dL (11.4-16.0); Lymphocytes # (A) 1.1 k/uL (1.0-4.8); Lymphocytes % (A) 20 %; MCH 29.4 pg (25.0-35.0); MCHC 32.5 g/dL (31.0-37.0); MCV 90.3 fL (80.0-100.0); Mean Platelet Volume 8.9; Monocytes # (A) 0.3 k/uL (0-1.0); Monocytes % (A) 5 %; Neutrophils # (A) 4.1 k/uL (1.3-7.7); Neutrophils % (A) 73 %; Platelet Count 171 k/uL (150-450); RBC 3.87 m/uL (3.80-5.40); RDW 12.5 % (11.5-15.5); WBC 5.6 k/uL (3.8-10.6)
[2019-07-14] MEDS ORDERED: ACETAMINOPHEN TAB 325 MG TAB PO PRN (07:48)
[2019-07-14] MEDS: SENNOSIDES-DOCUSATE SODIUM 1 EACH TAB PO SCH (08:00)
--- NOTE | 2019-07-14 08:57 | P.DS ---
Providers Date of admission: 07/13/19 19:27 Expected date of discharge: 07/14/19 Attending physician: Girma Em Primary care physician: Troy Alvarado - Discharge Diagnosis(es) (1) Menometrorrhagia Current Visit: Yes Status: Acute Hospital Course: The patient is a 38-year-old 2 para 2 who was admitted to the hospital for da Maria Ines robotically assisted laparoscopic hysterectomy with bilateral salpingectomy and diagnostic cystoscopy. She underwent these procedures and an uncomplicated fashion yesterday. Her postoperative course has been essentially unremarkable with vital signs remaining stable and her temperature is afebrile though she had a low-grade temperature last evening of 100.8 which was thought to be due to atelectasis. She is complaining of some right upper quadrant discomfort which likely represents carbon dioxide remaining in the abdominal cavity. She otherwise is performing all activities of daily living and tolerating a regular diet. She has been deemed stable for discharge and will be discharged home today on postoperative day #1 following lunch to follow-up in the office in 2 weeks for incision checks and 6 weeks routinely. Discharge instructions included calling for any significantly increased bleeding, fever, incisional complaints, GI complaints, urinary complaints, or anything else that concerned her. She is additionally instructed to have nothing in the vagina for at least 8 weeks time to include intercourse and to abstain from any heavy lifting over the next several weeks for as her body will allow. She was to do no driving until off of all pain medications or 2 weeks' time, whichever came first. She understood all of her instructions and agrees to follow up as noted above. Discharge medications included only [id number] analgesic pain medications as well as a prescription for Tylenol No. 3, 1-2 by mouth every 6 hours when necessary pain, #20 dispensed with no refills. Discharge hemoglobin and hematocrit was 11.4 and 35.0 respectively. Procedures: #1. Da Maria Ines robotically assisted laparoscopic hysterectomy with bilateral salpingectomy #2. Diagnostic cystoscopy Patient Condition at Discharge: Stable Plan - Discharge Summary Discharge Rx Participant: Yes New Discharge Prescriptions: No Action No Known Home Medications Discharge Medication List No Known Home Medications 05/05/18 [History] Follow up Appointment(s)/Referral(s): Girma Em MD [STAFF PHYSICIAN] - 2 Weeks Discharge Disposition: HOME SELF-CARE
[2019-07-14 09:56] VITALS: BP 97/56; PULSE 88; RESP 18; TEMP 98.6
== END 2019-07-14 14:30 | disposition home or self-care (01) ==
LOC: OR 05:48 → 4FBP 09:42 → OR 19:27
PROVIDERS: ADMIT Obstetrics & Gynecology; ATTEND Obstetrics & Gynecology
DX: D06.9 Carcinoma in situ of cervix, unspecified (principal); N94.6 Dysmenorrhea, unspecified; N92.0 Excessive and frequent menstruation with regular cycle; D64.9 Anemia, unspecified; Z88.0 Allergy status to penicillin; Z88.1 Allergy status to other antibiotic agents; Z88.2 Allergy status to sulfonamides; N92.1 Excessive and frequent menstruation with irregular cycle; R50.9 Fever, unspecified; Z98.891 History of uterine scar from previous surgery; M41.9 Scoliosis, unspecified
CPT/HCPCS: 58571; S2900; 64488; 85025; 86850; 86900; 86901; 88309